=== PATIENT | male | born 1940 | race Caucasian/White ===

== ENCOUNTER → 2020-04-13 | Outpatient (CLI) | payer MEDICARE ==
--- NOTE | 2020-04-13 14:15 | XR ---
EXAMINATION TYPE: XR cervical spine comp DATE OF EXAM: 04/13/2020 TECHNIQUE: Frontal, lateral, oblique, and open mouth view of the cervical spine are obtained. HISTORY: M542 CERVICALGIA chronic neck pain for 8 months. COMPARISON: None FINDINGS: Osseous structures are demineralized which is dorsal radiographic sensitivity. The cervica l spine is visualized in its entirety from C1 thru the top of T1 level, there is grade 1 anterolisthe sis C3 on C4 and to a greater degree C4-C5. There is grade 1 retrolisthesis C5 on C6. The pre-vertebr al soft tissue appears within normal limits. The C1-C2 articulation is within normal limits on the o pen mouth view. Vertebral body heights are maintained. Moderate to severe disc space narrowing C5-C6 and C6-C7 levels. The oblique images are within normal limits. Overlying soft tissue is unremarkable. IMPRESSION: As above.
== END | disposition home or self-care (01) ==
LOC: RADXRYALE 13:44
PROVIDERS: ATTEND Physician Assistant Medical
DX: M99.71 Connective tissue and disc stenosis of intervertebral foramina of cervical region (principal); M43.12 Spondylolisthesis, cervical region
CPT/HCPCS: 72050

== ENCOUNTER → 2021-05-02 | Outpatient (CLI) | payer MEDICARE ==
--- NOTE | 2021-05-04 12:44 | ECHOF ---
Referral Reason:R01.1 heart murmur, I10 hypertension MEASUREMENTS -------- HEIGHT: 167.6 cm WEIGHT: 52.6 kg BP: RVIDd: 3.8 cm (< 3.3) IVSd: 1.3 cm (0.6 - 1.1) LVIDd: 3.5 cm (3.9 - 5.3) LVPWd: 1.2 cm (0.6 - 1.1) IVSs: 1.6 cm LVIDs: 1.8 cm LVPWs: 1.5 cm LAESV Index (A-L): 25.56 ml/m Ao Diam: 3.5 cm (2.0 - 3.7) AV Cusp: 1.2 cm (1.5 - 2.6) LA Diam: 3.1 cm (2.7 - 3.8) MV EXCURSION: 9.024 mm (> 18.000) MV EF SLOPE: 79 mm/s (70 - 150) EPSS: 0.8 cm MV E Zi: 0.90 m/s MV DecT: 263 ms MV A Zi: 1.37 m/s MV E/A Ratio: 0.66 AV maxP.14 mmHg AV meanP.94 mmHg RAP: 5.00 mmHg RVSP: 38.75 mmHg FINDINGS -------- Sinus rhythm. This was a technically adequate study. The left ventricular size is normal. There is mild concentric left ventricular hypertrophy. Overa ll left ventricular systolic function is normal with, an EF between 55 - 60 %. The diastolic fillin g pattern is normal for the age of the patient 16.85. The right ventricle is mild to moderately enlarged. Normal LA size by volume 22+/-6 ml/m2. The right atrial size is normal. Interatrial and interventricular septum intact. There is no evidence of aortic regurgitation. Moderate to severe aortic stenosis with peak/mean pre ssure gradient of 61.14mmHg / 35.94mmHg, the aortic valve area by continuity equation is 0.9cm. Pe ak/mean gradient across the Aortic Valve is 61.14mmHg / 35.94mmHg. Mild mitral regurgitation is present. Mild tricuspid regurgitation present. There is borderline pulmonary hypertension. The right ventr icular systolic pressure, as measured by Doppler, is 38.75mmHg. There is no pulmonic regurgitation present. The aortic root size is normal. Normal inferior vena cava with normal inspiratory collapse consistent with estimated right atrial pre ssure of 5 mmHg. There is no pericardial effusion. CONCLUSIONS -------- 1. The left ventricular size is normal. 2. There is mild concentric left ventricular hypertrophy. 3. Overall left ventricular systolic function is normal with, an EF between 55 - 60 %. 4. The right ventricle is mild to moderately enlarged. 5. Moderate to severe aortic stenosis with peak/mean pressure gradient of 61.14mmHg / 35.94mmHg, the aortic valve area by continuity equation is 0.9cm. 6. Peak/mean gradient across the Aortic Valve is 61.14mmHg / 35.94mmHg. 7. Mild mitral regurgitation is present. 8. Mild tricuspid regurgitation present. 9. There is borderline pulmonary hypertension. 10. The right ventricular systolic pressure, as measured by Doppler, is 38.75mmHg. HEAD BOYS GOLF COACH: Lisbeth Jenkins RDCS
== END | disposition home or self-care (01) ==
LOC: RADECHMAIN 14:33
PROVIDERS: ATTEND Family Medicine
DX: I35.0 Nonrheumatic aortic (valve) stenosis (principal)
CPT/HCPCS: 93306

== ENCOUNTER 2023-01-08 08:40 | Day surgery (SDC) | payer MEDICARE ==
[2023-01-04 11:00] VITALS: BMI 25.8
[~2023-01-08 08:40] MED LIST: ALPRAZolam 0.25 MG TAB PO PRN; ALPRAZolam 0.5 MG TAB PO PRN; ASPIRIN 325 MG TAB PO PRN; ATORVASTATIN 80 MG TAB PO STA; HEPARIN SODIUM,PORCINE 10,000 UNIT in SODIUM CHLORIDE 0.9% 1,000 ML IRRIGATION PRN; HEPARIN SODIUM,PORCINE 2,500 UNIT in SODIUM CHLORIDE 0.9% 250 ML IRRIGATION PRN; NITROGLYCERIN SL TABS 0.4 MG TAB SUBLINGUAL PRN; SODIUM CHLORIDE 0.9% 1,000 ML in EMPTY BAG 1 BAG IV ONE; ZOLPIDEM 5 MG TAB PO PRN
[2023-01-08] MEDS ORDERED: VERAPAMIL 2.5 MG/ML 2 ML AMP ONE (11:19)
[2023-01-08] MEDS ORDERED: LIDOCAINE 1% INJ 10MG/ML (20 ML MDV) ONE (11:19)
[2023-01-08] MEDS ORDERED: MIDAZOLAM 2 MG/2 ML VIAL IV ONE (12:14)
[2023-01-08] MEDS ORDERED: LIDOCAINE 1% INJ 10MG/ML (20 ML MDV) SQ ONE (12:14)
[2023-01-08] MEDS ORDERED: IOPAMIDOL-370 100ML BTL INJ ONE (12:29)
[2023-01-08] MEDS ORDERED: IOPAMIDOL-250 100ML BTL INTRAARTER ONE (12:31)
[2023-01-08] MEDS ORDERED: RX INFO: IV CONTRAST WAS GIVEN 1 EACH MISC MISCELLANE PRN (12:38)
--- NOTE | 2023-01-08 12:42 | P.PCN ---
Date of Procedure: 01/08/23 Operative Findings: CARDIAC CATHETERIZATION PERFORMING PHYSICIAN: Michael Kelly MD, RPVI PROCEDURE PERFORMED: 1. Selective right and left coronary angiogram 2. Left heart catheterization 3. Ultrasound-guided access of the right femoral artery INDICATION: Unstable angina and valvular heart disease COMPLICATION: None APPROACH: Right common femoral artery LEVEL OF SEDATION: Moderate with sedation in length of 10 minutes PROCEDURE DESCRIPTION: After obtaining an informed consent, the patient was brought to cardiac laborer cutting tool. Local anesthesia was performed using lidocaine subcutaneously. The right common femoral artery was cannulated using Seldinger technique, the guidewire passed easily, following that we advanced a 6 Jordanian sheath dilator assembly, the wire and dilator were removed and sheath was flushed. Selective right and left coronary angiogram using a 6-Jordanian JR4 and JL catheters. Following that we did left heart catheterization using 6-Jordanian pigtail catheter. The procedure was completed there was no complication. SELECTIVE CORONARY ANGIOGRAM: The right coronary artery: Large caliber vessel and dominant vessel. The mid RCA has a lesion in the midportion appears to be in the range of 30-40% Left main: Has mild disease only. Bifurcates into a 6 and LAD The left circumflex: Large caliber vessel and on dominant vessel. The LCx appeared to have mild disease only. Gives rises into an I am which bifurcates into 2 subbranches and appeared to have mild disease only. The left anterior descending artery: The ostial LAD has mild disease only. The mid and distal LAD appeared to be angiographically normal. The LAD gives rise into a diagonal branch which seems to have mild disease only. HEMODYNAMICS: The LVEDP was 12 mmHg. There was a mean gradient across the valve of 51 mmHg CONCLUSION: 1. Mild nonobstructive coronary artery disease 2. Severe aortic stenosis with a mean gradient across the valve of 51 mmHg
--- NOTE | 2023-01-08 12:44 | P.PCN ---
Date of Procedure: 01/08/23 Operative Findings: AN ABDOMINAL AORTOGRAM AND BILATERAL LOWER EXTREMITIES RUNOFF PERFORMING PHYSICIAN: Michael Kelly MD PROCEDURE PERFORMED: 1. An abdominal aortogram 2. Bilateral lower extremities runoff INDICATION: Bilateral lower extremity is intermittent claudication in this 82-year-old gentleman who underwent a duplex study revealed aortoiliac disease and fem-pop disease COMPLICATION: None LEVEL OF SEDATION: Moderate was sedation length of 11 minutes APPROACH: Right common femoral artery PROCEDURE DESCRIPTION: After obtaining informed consent and explaining the procedure benefits, risks, and complications, the patient was brought to the cardiac hospital laboratory technician. The right groin was prepped and draped in sterile fashion. The right common femoral artery was cannulated using micropuncture technique, under ultrasound guidance. A micropuncture wire was advanced, and the micropuncture sheath was advanced over the wire, then the micropuncture sheath was exchanged over an 0.35 wire into a 5-Amharic sheath dilator assembly then the wire and dilator were removed and sheath was flushed. We did an abdominal aortogram and bilateral lower extremities runoff using 5- Amharic pigtail catheter using a power injection. The catheter was initially placed at the level of the renal arteries, and it was pulled into above the bifurcation of the aorta into right and left common iliac arteries. The procedure was completed and there was no complications. SELECTIVE PERIPHERAL ANGIOGRAM: The abdominal aorta: Calcified was mild to moderate disease The common iliac arteries: Calcified was mild to moderate disease only The external iliac arteries: Calcified was mild disease only The internal iliac arteries: Are patent The common femoral arteries: Have mild disease only bilaterally Superficial femoral arteries: Both are occluded in the midportion Popliteal arteries: Appears to have mild disease only Below the knees: 3 vessels runoff below the knee bilaterally CONCLUSION: Mild aortoiliac disease Critical right SFA and occluded left SFA POSTPROCEDURE MANAGEMENT: Medical treatment and follow-up with the patient and consider PIPED BUTTONHOLE MACHINE OPERATOR
[2023-01-08] MEDS ORDERED: SODIUM CHLORIDE 0.9% 1,000 ML IV SCH (12:45)
--- NOTE | 2023-01-08 12:50 | IR ---
EXAMINATION TYPE: IR angio abdominal w runoff DATE OF EXAM: 01/08/2023 COMPARISON: NONE HISTORY: Fluoroscopy time. Fluoroscopy was provided to the referring clinician.
[2023-01-08 19:36] VITALS: BP 154/70; PULSE 95; RESP 17; TEMP 98.1
== END 2023-01-08 20:35 | disposition home or self-care (01) ==
LOC: CATHCVL 08:40 → 6NMEDSUR 12:34 → CATHCVL 20:35
PROVIDERS: ATTEND Internal Medicine Interventional Cardiology
DX: I25.110 Atherosclerotic heart disease of native coronary artery with unstable angina pectoris (principal); I35.0 Nonrheumatic aortic (valve) stenosis; I70.213 Atherosclerosis of native arteries of extremities with intermittent claudication, bilateral legs; I70.0 Atherosclerosis of aorta; I11.9 Hypertensive heart disease without heart failure; E78.5 Hyperlipidemia, unspecified; E11.51 Type 2 diabetes mellitus with diabetic peripheral angiopathy without gangrene; Z79.899 Other long term (current) drug therapy
CPT/HCPCS: 99152; 93458; 75625; 75716; 76937; C1769 ×2; C1894 ×2; J2250; J2001; Q9966; Q9967; 36200

== ENCOUNTER 2023-02-07 06:53 | Outpatient (CLI) | payer MEDICARE ==
[2023-02-07 07:54] LABS: Basophils % (A) 1 %; Eosinophils # (A) 0.3 k/uL (0-0.7); Eosinophils % (A) 5 %; HCT 40.1 % (39.0-53.0); HGB 13.5 gm/dL (13.0-17.5); Lymphocytes # (A) 0.8 k/uL (1.0-4.8); Lymphocytes % (A) 13 %; MCHC 33.6 g/dL (31.0-37.0); MCV 95.4 fL (80.0-100.0); Mean Platelet Volume 8.7; Monocytes # (A) 0.5 k/uL (0-1.0); Monocytes % (A) 8 %; Neutrophils # (A) 4.6 k/uL (1.3-7.7); Neutrophils % (A) 72 %; Platelet Count 245 k/uL (150-450); RBC 4.21 m/uL (4.30-5.90); RDW 12.3 % (11.5-15.5); WBC 6.4 k/uL (3.8-10.6)
[2023-02-07 08:13] LABS: Partial Thromboplastin Time 24.4 sec (22.0-30.0); Prothrombin Time 10.5 sec (9.0-12.0)
[2023-02-07 08:58] LABS: NT-Pro-B-Type Natriuretic Pept 149 pg/mL
[2023-02-07 09:09] LABS: AST 32 U/L (17-59); African American GFR (CKD) 62 (>60 ml/min/1.73 sqM); Albumin 4.4 g/dL (3.5-5.0); Albumin/Globulin Ratio 1.4; Alkaline Phosphatase 53 U/L (38-126); Blood Urea Nitrogen 28 mg/dL (9-20); Calcium 9.6 mg/dL (8.4-10.2); Carbon Dioxide 23 mmol/L (22-30); Chloride 106 mmol/L (98-107); Globulin 3.1 g/dL; Glucose 108 mg/dL (74-99); Non-African American GFR(CKD) 54 (>60 ml/min/1.73 sqM); Total Bilirubin 0.7 mg/dL (0.2-1.3); Total Protein 7.5 g/dL (6.3-8.2)
[2023-02-07 09:31] LABS: Appearance,Urine Clear (Clear); Bilirubin,Urine Negative (Negative); Blood,Urine Negative (Negative); Color,Urine Light Yellow; Glucose,Urine (UA) Negative (Negative); Ketones,Urine Negative (Negative); Leukocyte Esterase,Urine Negative (Negative); Nitrite,Urine Negative (Negative); Protein,Urine Negative (Negative); Specific Gravity,Urine 1.014 (1.001-1.035); Urobilinogen,Urine <2.0 mg/dL (<2.0)
[2023-02-07 09:47] LABS: ALT 20 U/L (4-49); Anion Gap 9 mmol/L; Sodium 138 mmol/L (137-145)
[2023-02-07 09:58] LABS: Potassium 5.1 mmol/L (3.5-5.1)
[2023-02-07 10:13] LABS: T4, Free (Free Thyroxine) 0.97 ng/dL (0.78-2.19)
[2023-02-07 11:48] LABS: Hepatitis A Antibody IgM Nonreactive; Hepatitis B Core IgM Nonreactive; Hepatitis B Surface Antigen Nonreactive; Hepatitis C IgG Antibody Nonreactive
--- NOTE | 2023-02-07 11:50 | CT ---
EXAMINATION TYPE: CT TAVR Planning DATE OF EXAM: 02/07/2023 HISTORY: TAVR. CT DLP: 1614.4 mGycm Automated Exposure Control for Dose Reduction was Utilized. CONTRAST: CT scan of the chest, abdomen and pelvis is performed with IV Contrast, patient injected with 125ml m L of Isovue 370. COMPARISON: None TECHNIQUE: Helical imaging obtained through the chest, abdomen and pelvis during arterial phase earnestine ivan administration of radiographic contrast intravenously. FINDINGS: See report from [facility] regarding preprocedural planning CHEST: Lower Neck and Thyroid: No significant findings Lungs: Calcified granulomas are noted. Within the right upper lobe there is a noncalcified 6.5 mm pul monary nodule image 38 sequence 10. Three-month follow-up is recommended. Central Airway: No significant findings Pleura: No significant findings Pulmonary Arteries: No significant findings Heart and Pericardium: No significant findings Lymph Nodes: No significant findings Mediastinum & Esophagus: No significant findings ABDOMEN/PELVIS: Please note arterial phase of the imaging limits detailed evaluation of the solid abdominal organs. Liver: No significant findings Spleen: No significant findings Kidneys: Renal cystic changes noted bilaterally. Adrenal Glands: No significant findings Pancreas: No significant findings Gallbladder: No significant findings Bowel and Mesentery: No significant findings Lymph Nodes: No significant findings Urinary Bladder: No significant findings Pelvic Organs: No significant findings Other: Severe degenerative changes throughout the thoracic and lumbar spine. Other Lines/Tubes/Devices/Hardware: None IMPRESSION: 1. Noncalcified right upper lobe pulmonary nodule. Three-month follow-up is recommended. 2. Evidence of remote granulomatous disease.
[2023-02-07 15:53] LABS: LDL Cholesterol,Calculated 105.7 mg/dL (0.0-131.0)
== END 2023-02-07 14:00 | disposition home or self-care (01) ==
LOC: LABWHC1 06:53
PROVIDERS: ATTEND Thoracic Surgery (Cardiothoracic Vascular Surgery)
DX: Z01.818 Encounter for other preprocedural examination (principal); I35.1 Nonrheumatic aortic (valve) insufficiency; I35.0 Nonrheumatic aortic (valve) stenosis; E87.8 Other disorders of electrolyte and fluid balance, not elsewhere classified; Z51.81 Encounter for therapeutic drug level monitoring; Z79.899 Other long term (current) drug therapy; N28.9 Disorder of kidney and ureter, unspecified; E78.5 Hyperlipidemia, unspecified; E11.9 Type 2 diabetes mellitus without complications; E07.9 Disorder of thyroid, unspecified; Z79.01 Long term (current) use of anticoagulants; R58 Hemorrhage, not elsewhere classified; R35.0 Frequency of micturition
CPT/HCPCS: 94150; 84439; 83880; 80061; 80053; 80074; 84443; 83735; 85025; 85610; 85730; 81003; 87086; 83036; 71275; 74174; 36415; Q9967

== ENCOUNTER 2023-02-13 05:49 | Day surgery (SDC) | payer MEDICARE ==
[2023-02-13] MEDS ORDERED: ALPRAZolam 0.25 MG TAB PO PRN (06:01)
[2023-02-13] MEDS ORDERED: SODIUM CHLORIDE 0.9% 1,000 ML in EMPTY BAG 1 BAG IV ONE (06:01)
[2023-02-13] MEDS ORDERED: SODIUM CHLORIDE 0.9% 1,000 ML IV ONE (06:09)
[2023-02-13 06:20] LABS: Glucose,Whole Blood 101 mg/dL (70-110)
[2023-02-13] MEDS ORDERED: ASPIRIN 325 MG TAB PO PRN (07:00)
[2023-02-13] MEDS ORDERED: LIDOCAINE 1% INJ 10MG/ML (20 ML MDV) ONE (07:14)
[2023-02-13] MEDS ORDERED: niCARdipine 25 MG/10 ML VIAL ONE (07:22)
[2023-02-13] MEDS: MIDAZOLAM 2 MG/2 ML VIAL IVP ONE ×2 (07:55→08:26)
[2023-02-13] MEDS ORDERED: LIDOCAINE 1% INJ 10MG/ML (20 ML MDV) SQ ONE (08:00)
[2023-02-13] MEDS ORDERED: HEPARIN SODIUM 1,000 UN/ML (10ML VL) IV ONE (08:06)
[2023-02-13] MEDS: HEPARIN SODIUM 1,000 UN/ML (10ML VL) ONE ×2 (08:40→09:06)
[2023-02-13] MEDS ORDERED: NITROGLYCERIN 1000MCG/10ML SYRINGE INTRAARTER ONE (08:57)
[2023-02-13] MEDS ORDERED: niCARdipine Syringe (1,000 mcg/10 mL) INTRAARTER ONE (08:57)
[2023-02-13] MEDS ORDERED: CLOPIDOGREL 75 MG TAB ONE (09:10)
[2023-02-13] MEDS ORDERED: CLOPIDOGREL 75 MG TAB PO ONE (09:12)
[2023-02-13] MEDS ORDERED: NALOXONE 0.4 MG/ML 1 ML VIAL IVP PRN (09:22)
[2023-02-13] MEDS ORDERED: SODIUM CHLORIDE 0.9% 1,000 ML in EMPTY BAG 1 BAG IV SCH (09:30)
[2023-02-13] MEDS ORDERED: IOPAMIDOL-370 100ML BTL INJ ONE (09:33)
--- NOTE | 2023-02-13 09:55 | IR ---
EXAMINATION TYPE: IR special education paraeducator femoral popliteal DATE OF EXAM: 02/13/2023 COMPARISON: NONE HISTORY: Fluoroscopy time. Fluoroscopy was provided to the referring clinician.
--- NOTE | 2023-02-13 10:05 | P.PCN ---
Date of Procedure: 02/13/23 Operative Findings: PERCUTANEOUS PERIPHERAL INTERVENTION Performing physician Michael Kelly M.D. Procedure performed 1. Successful angioplasty of the left SFA with good angiographic results and reduction of stenosis from 99% to 0% 2. Adjunctive use of orbital atherectomy and shockwave balloon and intravascular ultrasound 3. Intravascular ultrasound of the right SFA and right popliteal as well as bilateral iliac arteries 4. Ultrasound-guided access of the left common femoral artery 5. Right lower extremity angiogram Indication Bilateral lower extremity is intermittent claudication who underwent recently an angiogram and that revealed critical right SFA is occluded left SFA. He was brought today to undergo a BASKET BRAIDER of the right SFA Approach Left common femoral artery Complications None Level of sedation Moderate with a sedation time of 78 minutes Procedure description After obtaining an informed consent the patient was brought to the cardiac physical laboratory assistant. The left common femoral artery was cannulated using micropuncture techniqu e under ultrasound guidance and the micropuncture wire passed easily then I placed a 6-Albanian 70 cm sheath in the left common femoral artery. At that point anticoagulation was initiated using heparin would continue his ACT monitoring. The right SFA was selected using 035 stiff Glidewire with a backup support of 5- Albanian rim catheter then the long sheath was advanced over the wire and the catheter to the proximal right common femoral artery. The right lower extremity angiogram was performed and showed 2 vessels run off below the with anterior TPL and peroneal and critical disease involving the mid right SFA. At that point I crossed the lesion in the right SFA using 014 wire. I did after that intravascular ultrasound which revealed extremely calcified lesion. I did exchange my 014 wire into a 14 atherectomy wire preparing to do orbital atherectomy which was performed under local and medial and high-speed. Subsequently I did balloon angioplasty using shockwave balloon which was 6 mm. Intravascular ultrasound revealed a diameter about 6 mm with extremely calcified SFA. After that I did balloon arterial vascular was performed in angiogram was performed and showed a good angiographic results and for that reason I decided to move forward with drug-coated balloon which was 6.0 x 200 mm balloon which was inflated under 5 heraclio for 30 minutes. Final angiogram was performed and sh owed good angiographic results with good flow below the knee as well. After that I did intravascular ultrasound of bilateral iliacs and that showed a diameter of the iliac 6 mm with the absence of any high-grade stenosis. The procedure was completed was no complication. After that I did exchange my long sheath into short sheath using 035 stiff Glidewire before I did selective left common femoral artery angiogram. The procedure was completed was no complication Postprocedure management 1. Dual antiplatelet therapy 2. Aggressive cholesterol control 3. Risk factors modification 4. Follow-up with the patient
[2023-02-13] MEDS: lisinopriL 5 MG TAB PO SCH (20:57)
[2023-02-13] MEDS ORDERED: FLUTICASONE 50MCG/SPRAY NASAL 16GM EA NOSTRIL SCH (21:00)
[2023-02-14 06:55] LABS: African American GFR (CKD) 66 (>60 ml/min/1.73 sqM); Non-African American GFR(CKD) 57 (>60 ml/min/1.73 sqM)
[2023-02-14 07:42] VITALS: BP 108/64; PULSE 75; RESP 18; TEMP 97.8
[2023-02-14] MEDS: lisinopriL 5 MG TAB PO SCH (08:03)
[2023-02-14] MEDS ORDERED: NON FORMULARY DRUG (Ubidecarenone [Co Q-10] 100 MG Capsule) PO SCH (09:00)
[2023-02-14] MEDS ORDERED: ASPIRIN 81 MG PO SCH (09:00)
[2023-02-14] MEDS ORDERED: CYANOCOBALAMIN 500 MCG TAB PO SCH (09:00)
[2023-02-14] MEDS ORDERED: CLOPIDOGREL 75 MG TAB PO SCH (09:00)
[2023-02-14] MEDS ORDERED: NON FORMULARY DRUG (Vitamin K2 [Vitamin K2] 100 MCG Capsule) PO SCH (09:00)
[2023-02-14] MEDS ORDERED: PRAVASTATIN SODIUM 80 MG TAB PO SCH (09:00)
[2023-02-14] MEDS ORDERED: MULTIVITAMINS, THERA 1 EACH TAB PO SCH (09:00)
[2023-02-14] MEDS ORDERED: CHOLECALCIFEROL 25 MCG (1000 IU) TABLET PO SCH (09:00)
--- NOTE | 2023-02-14 11:57 | P.DS ---
Providers Attending physician: Michael Kelly Primary care physician: [facility] Course: The patient is a pleasant 82-year-old gentleman who underwent yesterday successful balloon angioplasty of the right SFA with a good angiographic results from left groin approach. The patient was seen this morning. He is asymptomatic. The right foot has a great pulse in the dorsalis pedis artery. The patient is going to be discharged home on dual antiplatelet therapy and statin and I will follow-up with the patient next week in the office Plan - Discharge Summary Discharge Rx Participant: No New Discharge Prescriptions: New Atorvastatin Calcium [Lipitor] 40 mg PO DAILY #90 tablet Clopidogrel [Plavix] 75 mg PO DAILY #90 tablet Continue Cyanocobalamin (Vitamin B-12) [Vitamin B-12] 1,000 mcg PO DAILY Cholecalciferol [Vitamin D3 (25 Mcg = 1000 Iu)] 25 mcg PO DAILY Ubidecarenone [Co Q-10] 100 mg PO DAILY Pravastatin Sodium 80 mg PO DAILY lisinopriL [Zestril] 5 mg PO BID Vitamin K2 90 mcg PO DAILY Multivitamin/Iron/Folic Acid [Centrum Adults Tablet] 1 each PO DAILY Fluticasone Nasal [place] [Flonase Nasal [place]] 1 spray EA NOSTRIL BID Aspirin 81 mg PO DAILY Discharge Medication List Cholecalciferol [Vitamin D3 (25 Mcg = 1000 Iu)] 25 mcg PO DAILY 12/14/21 [History] Cyanocobalamin (Vitamin B-12) [Vitamin B-12] 1,000 mcg PO DAILY 12/14/21 [History] Ubidecarenone [Co Q-10] 100 mg PO DAILY 12/14/21 [History] Vitamin K2 90 mcg PO DAILY 12/14/21 [History] lisinopriL [Zestril] 5 mg PO BID 12/14/21 [History] Fluticasone Nasal [place] [Flonase Nasal [place]] 1 spray EA NOSTRIL BID 01/04/23 [History] Multivitamin/Iron/Folic Acid [Centrum Adults Tablet] 1 each PO DAILY 01/04/23 [History] Pravastatin Sodium 80 mg PO DAILY 01/04/23 [History] Aspirin 81 mg PO DAILY 01/08/23 [History] Atorvastatin Calcium [Lipitor] 40 mg PO DAILY #90 tablet 02/14/23 [Rx] Clopidogrel [Plavix] 75 mg PO DAILY #90 tablet 02/14/23 [Rx] Follow up Appointment(s)/Referral(s): Michael Kelly MD [STAFF PHYSICIAN] - 02/27/23 2:15 pm Patient Instructions/Handouts: Angiography (DC) Discharge Disposition: HOME SELF-CARE
== END 2023-02-14 09:10 | disposition home or self-care (01) ==
LOC: CATHCVL 05:49 → 6NMEDSUR 12:51 → CATHCVL 02-14 09:10
PROVIDERS: ATTEND Internal Medicine Interventional Cardiology
DX: I73.9 Peripheral vascular disease, unspecified (principal); I10 Essential (primary) hypertension; E11.9 Type 2 diabetes mellitus without complications; E78.5 Hyperlipidemia, unspecified; Z79.899 Other long term (current) drug therapy
CPT/HCPCS: 37252; 37253; 82565; C1894 ×2; C1769 ×6; C1714; C1753; C2623; C9766; C1725; J2250; J2001; J1644; Q9967

== ENCOUNTER 2023-03-20 08:00 | Inpatient (IN) | payer MEDICARE ==
[2023-04-10] MEDS ORDERED: CLOPIDOGREL 75 MG TAB PO ONE (08:00)
[2023-04-10] MEDS ORDERED: ATORVASTATIN 10 MG TAB PO ONE (08:00)
[2023-04-10] MEDS ORDERED: INSULIN REGULAR 100 UNIT in SODIUM CHLORIDE 0.9% 100 ML IV PRN (08:00)
[2023-04-10] MEDS ORDERED: ELECTROLYTE-A SOLUTION 1,000 ML with POTASSIUM CHLORIDE 100 MEQ, MAGNESIUM SULFATE 16 M... IV PRN ×5 (08:00)
[2023-04-10] MEDS ORDERED: METOPROLOL TARTRATE 25 MG TAB PO ONE (08:00)
[2023-04-10] MEDS ORDERED: PROTAMINE SULFATE 250 MG in EMPTY BAG 1 BAG IV PRN (08:00)
[2023-04-10] MEDS ORDERED: NITROGLYCERIN-D5W PMX 25 MG/250 ML BTL IV PRN (08:00)
[2023-04-10] MEDS ORDERED: ASPIRIN 325 MG TAB PO ONE (08:00)
[2023-04-10] MEDS ORDERED: TRANEXAMIC ACID 2,000 MG in SODIUM CHLORIDE 0.9% 80 ML IV PRN (08:00)
[2023-04-10] MEDS ORDERED: CLEVIDIPINE BUTYRATE 25 MG in EMPTY BAG 1 BAG IV PRN (08:00)
[2023-04-10] MEDS ORDERED: LACTATED RINGERS 1,000 ML IV SCH ×2 (08:00→12:46)
[2023-04-10] MEDS ORDERED: METOPROLOL TARTRATE 12.5 MG TAB PO ONE (08:00)
[2023-04-10] MEDS ORDERED: SODIUM CHLORIDE 0.9% 500 ML 500 ML INTRAARTER PRN (08:00)
[2023-04-10] MEDS ORDERED: DEXMEDETOMIDINE/0.9% NACL(PMX) 400 MCG in EMPTY BAG 1 BAG IV SCH (08:15)
[2023-04-10] MEDS ORDERED: HEPARIN SODIUM,PORCINE 5,000 UNIT/ML 1 ML VIAL ONE (10:06)
[2023-04-10] MEDS ORDERED: MIDAZOLAM 2 MG/2 ML VIAL ONE (10:06)
[2023-04-10] MEDS ORDERED: PROTAMINE SULFATE 10 MG/ML 5 ML VIAL ONE (10:06)
[2023-04-10] MEDS ORDERED: DEXMEDETOMIDINE/0.9% NACL(PMX) 400 MCG/100 ML IV ONE (10:06)
[2023-04-10] MEDS ORDERED: HEPARIN SODIUM,PORCINE 10,000 UNIT/ML 1 ML VIAL ONE (10:06)
[2023-04-10] MEDS ORDERED: fentaNYL (PF) 50 MCG/ML 2 ML AMP ONE (10:06)
[2023-04-10] MEDS ORDERED: PHENYLEPHRINE-0.9% NACL SYG 1,000 MCG/10 ML SYRINGE ONE (10:06)
[2023-04-10] MEDS ORDERED: LIDOCAINE 1% INJ 10MG/ML (20 ML MDV) ONE ×2 (10:28→10:29)
[2023-04-10] MEDS ORDERED: LIDOCAINE 1% INJ 10MG/ML (20 ML MDV) SQ ONE (10:51)
[2023-04-10] MEDS ORDERED: ONDANSETRON 4 MG/2 ML VIAL IVP PRN (12:46)
[2023-04-10] MEDS ORDERED: IPRATROPIUM-ALBUTEROL 3 ML NEB INHALATION PRN (12:46)
[2023-04-10] MEDS ORDERED: ACETAMINOPHEN TAB 325 MG TAB PO PRN (12:46)
[2023-04-10] MEDS ORDERED: Magnesium Replacement Protocol 1 EACH MISC MISCELLANE PRN (12:46)
[2023-04-10] MEDS ORDERED: Potassium Replacement Protocol 1 EACH MISC MISCELLANE PRN (12:46)
[2023-04-10] MEDS ORDERED: IV FLUID CONTINUATION 1,000 ML IV ONE (13:41)
[2023-04-10] MEDS ORDERED: IOPAMIDOL-370 100ML BTL INJ ONE (13:42)
[2023-04-10] MEDS ORDERED: IOPAMIDOL-300 100ML BTL INJ ONE (13:42)
[2023-04-10 13:49] LABS: Glucose,Whole Blood 109 mg/dL (70-110)
[2023-04-10 14:11] LABS: Basophils % (A) 0 %; Eosinophils # (A) 0.3 k/uL (0-0.7); Eosinophils % (A) 5 %; HCT 31.7 % (39.0-53.0); HGB 10.4 gm/dL (13.0-17.5); Lymphocytes # (A) 0.6 k/uL (1.0-4.8); Lymphocytes % (A) 11 %; MCH 31.6 pg (25.0-35.0); MCHC 32.8 g/dL (31.0-37.0); MCV 96.4 fL (80.0-100.0); Mean Platelet Volume 9.1; Monocytes # (A) 0.3 k/uL (0-1.0); Monocytes % (A) 5 %; Neutrophils # (A) 4.5 k/uL (1.3-7.7); Neutrophils % (A) 78 %; Platelet Count 252 k/uL (150-450); RBC 3.29 m/uL (4.30-5.90); RDW 12.2 % (11.5-15.5); WBC 5.7 k/uL (3.8-10.6)
[2023-04-10 14:28] LABS: Ionized Calcium 4.9 mg/dL (4.5-5.3)
[2023-04-10] MEDS ORDERED: hydrALAZINE HCL 20 MG/ML 1 ML VIAL IVP PRN (14:30)
--- NOTE | 2023-04-10 14:34 | OP ---
OPERATIVE REPORT DATE OF SERVICE : 04/10/2023 SURGEONS: 1. Dr. Kelsey Be. 2. Dr. Bijan Maier. PREOPERATIVE DIAGNOSES: 1. Severe symptomatic aortic valve stenosis. 2. Esophageal stricture. POSTOPERATIVE DIAGNOSES: 1. Severe symptomatic aortic valve stenosis. 2. Esophageal stricture. PROCEDURES PERFORMED: 1. Insertion of right ventricular temporary pacing wire. 2. Predilatation of the aortic valve using a 22 mm True balloon. 3. Transcatheter aortic valve replacement using a 29 mm Evolut FX CoreValve. from [employer]. DESCRIPTION OF PROCEDURE: The technical details will be dictated by Dr. Maier. The procedure was performed with local anesthesia and IV sedation as the patient has an esophageal stricture precluding performing a MAULIK with an adult scope. I fully participated in the proper dilatation initially of the aortic valve with a 22 mm True balloon followed by transcatheter aortic valve replacement using a 29 mm Evolut FX CoreValve from [employer]. 2D echo showed low gradient, and no evidence of paravalvular leak. Aortogram showed no significant aortic valve regurgitation, and hemodynamic measurement showed no residual gradient across the valve. No changes to the EKG. MMODL / IJN: [id number] /
[2023-04-10 14:38] LABS: ALT 25 U/L (4-49); AST 40 U/L (17-59); African American GFR (CKD) 61 (>60 ml/min/1.73 sqM); Albumin 3.2 g/dL (3.5-5.0); Alkaline Phosphatase 47 U/L (38-126); Anion Gap 4 mmol/L; Blood Urea Nitrogen 21 mg/dL (9-20); Calcium 8.8 mg/dL (8.4-10.2); Carbon Dioxide 22 mmol/L (22-30); Chloride 109 mmol/L (98-107); Glucose 114 mg/dL (74-99); Magnesium 2.1 mg/dL (1.6-2.3); Non-African American GFR(CKD) 53 (>60 ml/min/1.73 sqM); Potassium 5.3 mmol/L (3.5-5.1); Sodium 135 mmol/L (137-145); Total Bilirubin 0.5 mg/dL (0.2-1.3); Total Protein 6.1 g/dL (6.3-8.2)
[2023-04-10 14:42] LABS: INR 1.1 (<1.2); Prothrombin Time 11.7 sec (9.0-12.0)
[2023-04-10 15:12] LABS: Partial Thromboplastin Time >200.0 sec (22.0-30.0)
--- NOTE | 2023-04-10 15:31 | XR ---
EXAMINATION TYPE: XR chest 1V portable DATE OF EXAM: 04/10/2023 2:17 PM CLINICAL INDICATION:Male, 82 years old with history of Post Operative Cardiac Surgery; [facility] COMPARISON: None TECHNIQUE: XR chest 1V portable Frontal view of the chest. FINDINGS: Lungs/Pleura: Low lung volumes are present. There is no evidence of pleural effusion, focal consolida tion, or pneumothorax. Pulmonary vascularity: Unremarkable. Heart/mediastinum: Cardiomediastinal silhouette is unremarkable. Post aortic valve repair changes. Musculoskeletal: No acute osseous pathology. Other findings: None IMPRESSION: Aortic valve repair change. Low lung volumes. No significant pulmonary vascular congestion
[2023-04-10] MEDS ORDERED: ATROPINE SULFATE 0.1 MG/ML 10ML SYRINGE ONE (16:29)
--- NOTE | 2023-04-10 16:51 | P.OP ---
Description of Procedure: Transcatheter Aoritc Valve Replacement Operative report PROCEDURE PERFORMED: 1. Percutaneous Aortic Valve Implantation using a 29 mm Evolut-FX. 2. Transthoracic echocardiography 3. Ultrasound guided access and repair of left femoral artery access site by Perclose closure device. 4. Placement of temporary pacemaker wire. 5. Aortic root angiography 6. Pre TAVR balloon aortic valvuloplasty with a 22mm True balloon 7. Repair of left femoral artery using a 6.0 x 120mm Supera stent, post dilated with a 6.0 balloon 8. IVUS left femoral artery INDICATIONS: 1. 82 year-old with a history of severe symptomatic aortic valve stenosis. PERFORMING PHYSICIANS: 1. Bijan Maier, Interventional Cardiology 2. Kelsey Be MD, Cardiothoracic Surgeon. SEDATION: Moderate conscious sedation was performed by anesthesia, see separate note APPROACH: Left femoral artery via percutaneous approach PROCEDURE DESCRIPTION: The patient was discussed at valve clinic with multidisciplinary approach with cardiothoracic surgeon as well as cigarette tester and thought better treated with TAVR. Risks, benefits, and alternatives of the procedure had been explained to the patient who understood the risks and agreed to proceed. Patient was noted to have significant left femoral and iliac artery disease however preprocedure discussion as well as during TAVR consult, we discussed planned advancement of the sheath with anticipated need for percutaneous intervention. After consents were obtained, patient was brought to the transcatheter aortic valve implantation room in the cardiac tutorial laboratory supervisor and MAC anesthesia was provided by the anesthesiologist (see separate report) secondary to pumonary status and esophageal stricture. Once full body sterile prep was performed, right femoral venous access was obtained and a 6Fr sheath was placed. A temporary pacemaker was placed in the RV. Pacing threshholds were checked and deemed appropriate. Next the right femoral artery was accessed using a modified Seldinger technique, ultrasound guidance and micropuncture technique. A 6 [place] Rabi sheath was placed in the right femoral artery. Next, a 6-[place]ra[place] pigtail catheter was advanced into the aorta and positioned in the aortic root, aortic root angiography was performed to determine optimal deployment angle. The left femoral artery was accessed using modified Seldinger technique, micropuncture technique and under direct ultrasound guidance. Femoral angiogram was done showing access in the common femoral artery and a 6Fr sheath was p laced. Next preclose technique was performed using 2 Perclose. Next a 0.035 [place] wire was placed in the Aorta via a pigtail catheter. Over that the arteriotomy was serially dilated and a 14 Fr [place] sheath was placed. Next a 6F- AL1 catheter was advanced over a wire to the aortic root. A straight wire was advanced through the catheter and used to cross the severely stenotic valve. The AL1 was then exchanged for a 6Fr pigtail catheter and pressure measurements were obtained. The 0.035 Lunderquist wire was then positioned in the apex. Next balloon aortic valvuloplasty was performed with a 22mm True balloon. Next a 29 mm Evolut-FX was advanced. The valve was then positioned across the aortic valve and confirmed with aortic root angiography. The valve was then deployed in proper position using slow deployment and with rapid pacing in conjuncture with aortic root angiography. The delivery system was withdrawn back into the arch and an aortic root injection in conjunction with TTE demonstrated a satisfactory result. There was mild para valvular leak. There was no evidence of any other significant abnormalities. The preclose Perclose was then deployed in the left femoral artery and hemostasis was achieved. A 6Fr rim catheter was then advanced to the level of the iliac bifurcation via the right femoral access. Femoral angiogram was performed that showed occlusion of the left external iliac artery into the left common femoral artery. Therefore a 0.035 glide wire and a 0.014 BMW wire were used to attempt to wire from above however unable to pass past the femoral site. Did not want to extend any possible dissection down and therefore a microcatheter needle was used to access the left common femoral artery percutaneously and a 0.014 whisper wire was advanced. A 0.018 [place] catheter was advanced over the 0.014 whisper wire for more support. Next the 0.014 whisper was able to wire the iliac lesion from below and advanced into the aorta. The wire was snared with a 6.0 snare and externalized. Balloon angioplasty was performed with a 4.0 then 5.0 balloon from the right femoral site with hoahaoism of flow. IVUS was performed which showed dissection of the left common iliac into the proximal to mid left common femoral artery. Therefore decision was made to perform stenting. The 6Fr destination sheath was exchanged for a 7Fr Rabi. A 6.0 x 120mm Supera stent was placed in the left external iliac artery into the left common femoral artery. The stent was post dilated with a 6.0 balloon. The wire was pulled and final angiograms were performed. There was uninhibited flow with no dissection. The right femoral angiogram demonstrated an arteriotomy in the common femoral artery however diffuse disease and therefore a short 7Fr sheath was placed to be pulled at a later time. The temporary venous pacemaker was removed and the venous sheath left in place to be pulled at a later time. The patient was then transported to the ICU in hemodynamically stable condition, requiring no pressor support. COMPLICATIONS: None CONCLUSION: 1. Implantaion of 29 mm Evolut-FX transcatheter aortic valve via left femoral approach under MAULIK and fluoro guidance with mild paravalvular aortic regurgitation. 2. Placement of temporary pacemaker wire 3. Aortic Root Aortogram. 4. Pre TAVR balloon aortic valvuloplasty with a 22mm True balloon 5. Repair of left femoral artery using a 6.0 x 120mm Supera stent, post dilated with a 6.0 balloon RECOMMENDATIONS: The patient will be monitored in the ICU for hemodynamic and electrical stability.
[2023-04-10] MEDS: FLUTICASONE 50MCG/SPRAY NASAL 16GM EA NOSTRIL SCH (20:17)
[2023-04-10] MEDS ORDERED: SENNOSIDES-DOCUSATE SODIUM 1 EACH TAB PO SCH (21:00)
[2023-04-10] MEDS ORDERED: lisinopriL 5 MG TAB PO SCH (21:00)
[2023-04-10] MEDS: HEPARIN SODIUM,PORCINE 5,000 UNIT/ML 1 ML VIAL SQ SCH (23:49)
[2023-04-11 05:13] LABS: Basophils % (A) 0 %; Eosinophils # (A) 0.3 k/uL (0-0.7); Eosinophils % (A) 3 %; HCT 31.9 % (39.0-53.0); HGB 10.3 gm/dL (13.0-17.5); Lymphocytes # (A) 0.5 k/uL (1.0-4.8); Lymphocytes % (A) 5 %; MCHC 32.1 g/dL (31.0-37.0); MCV 96.4 fL (80.0-100.0); Mean Platelet Volume 10.4; Monocytes # (A) 0.7 k/uL (0-1.0); Monocytes % (A) 7 %; Neutrophils # (A) 7.9 k/uL (1.3-7.7); Neutrophils % (A) 84 %; Platelet Count 253 k/uL (150-450); RBC 3.31 m/uL (4.30-5.90); RDW 12.6 % (11.5-15.5); WBC 9.4 k/uL (3.8-10.6)
[2023-04-11 05:51] LABS: ALT 34 U/L (4-49); AST 57 U/L (17-59); African American GFR (CKD) 61 (>60 ml/min/1.73 sqM); Albumin 3.4 g/dL (3.5-5.0); Alkaline Phosphatase 55 U/L (38-126); Anion Gap 9 mmol/L; Blood Urea Nitrogen 18 mg/dL (9-20); Carbon Dioxide 22 mmol/L (22-30); Chloride 105 mmol/L (98-107); Glucose 115 mg/dL (74-99); Non-African American GFR(CKD) 53 (>60 ml/min/1.73 sqM); Potassium 4.6 mmol/L (3.5-5.1); Sodium 136 mmol/L (137-145); Total Bilirubin 0.3 mg/dL (0.2-1.3); Total Protein 6.2 g/dL (6.3-8.2)
[2023-04-11] MEDS ORDERED: PANTOPRAZOLE 40 MG TABLET PO SCH (07:30)
--- NOTE | 2023-04-11 07:47 | CA ---
Transthoracic Echo Report Name: Eddie Shirley Age: 82 Gender: M : 1940 Exam Date: 04/10/2023 10:29 Exam Location: [facility] Ht (in): 66 Wt (lb): 180 Ordering Physician: Ngozi Pedroza Attending/Referring Phys: [id number], Kasia Liability Claims Representative Krystyna Escobedo RDCS Procedure CPT: Indications: tavr Cardiac Hx: Technical Quality: Technically difficult study Contrast 1: Total Dose (mL): Contrast 2: Total Dose (mL): MEASUREMENTS (Male / Female) Normal Values DOPPLER AV Peak Velocity 374.9 cm/s AV Peak Gradient 59.0 mmHg AV Mean Velocity 270.0 cm/s AV Mean Gradient 30.0 mmHg AV Velocity Time Integral 96.9 cm LVOT Peak Velocity 87.9 cm/s LVOT Peak Gradient 3.1 mmHg FINDINGS Left Ventricle Left ventricular ejection fraction is estimated at 55-60 %. Right Ventricle Right Atrium Left Atrium Mitral Valve Aortic Valve Pre TAVR . AOV estimated supine stenosis with a peak velocity of 375 m/s, peak gradient 59 mmHg, mean gradient 30 mmHg. Post TAVR AOV insertion max gradient 2.3 mmHg and mean 1.0 mmHg. Mild aortic regurgitation. Tricuspid Valve Pulmonic Valve Pericardium No pericardial effusion. Aorta CONCLUSIONS 1. Normal left ventricular size and systolic function 2. Moderate aortic stenosis with post TAVR evidence of mild aortic regurgitation and no significant gradient Previewed by: Dr. Ben Álvarez MD (Electronically Signed) Final Date: 11 April 2023 07:46
--- NOTE | 2023-04-11 08:04 | XR ---
EXAMINATION TYPE: XR chest 1V portable DATE OF EXAM: 04/11/2023 HISTORY: Post Operative Cardiac Surgery COMPARISON: 04/10/2023 TECHNIQUE: Single view of the chest is submitted. FINDINGS: Demonstrated are scattered senescent parenchymal change. There is no evidence for focal infiltrate. The heart is stable. Aortic valvular prosthesis. Hilar and mediastinal structures are within normal limits. Degenerative changes are seen of the dorsal spine. IMPRESSION: 1. Essentially stable chest without evidence for acute pulmonary disease. Postoperative changes note d.
[2023-04-11] MEDS ORDERED: PRAVASTATIN SODIUM 80 MG TAB PO SCH (09:00)
[2023-04-11] MEDS ORDERED: MAGNESIUM HYDROXIDE 2,400 MG/30 ML CUP PO PRN (09:00)
[2023-04-11] MEDS ORDERED: CYANOCOBALAMIN 500 MCG TAB PO SCH (09:00)
[2023-04-11] MEDS ORDERED: MULTIVITAMINS, THERA 1 EACH TAB PO SCH (09:00)
[2023-04-11] MEDS ORDERED: bisacodyL 10 MG SUPP RECTAL PRN (09:00)
[2023-04-11] MEDS ORDERED: CHOLECALCIFEROL 25 MCG (1000 IU) TABLET PO SCH (09:00)
[2023-04-11] MEDS ORDERED: NON FORMULARY DRUG (Ubidecarenone [Co Q-10] 100 MG Capsule) PO SCH (09:00)
[2023-04-11] MEDS ORDERED: ASPIRIN 81 MG PO SCH (09:00)
[2023-04-11] MEDS ORDERED: NON FORMULARY DRUG (Vitamin K2 [Vitamin K2] 100 MCG Capsule) PO SCH (09:00)
[2023-04-11] MEDS ORDERED: METOPROLOL TARTRATE 12.5 MG TAB PO SCH (09:00)
[2023-04-11] MEDS: HEPARIN SODIUM,PORCINE 5,000 UNIT/ML 1 ML VIAL SQ SCH (09:11)
[2023-04-11] MEDS: FLUTICASONE 50MCG/SPRAY NASAL 16GM EA NOSTRIL SCH (09:14)
[2023-04-11] MEDS ORDERED: CLOPIDOGREL 75 MG TAB PO SCH (12:00)
--- NOTE | 2023-04-11 12:27 | CA ---
Transthoracic Echo Report Name: Eddie Shirley Age: 82 Gender: M : 1940 Exam Date: 04/11/2023 07:41 Exam Location: [facility] Ht (in): 66 Wt (lb): 160 Ordering Physician: Ngozi Pedroza Attending/Referring Phys: [id number], Kasia Caustic Room Operator Keaton Alcaraz Procedure CPT: Indications: post TAVR Cardiac Hx: Technical Quality: Technically difficult study Contrast 1: Total Dose (mL): Contrast 2: Total Dose (mL): MEASUREMENTS (Male / Female) Normal Values 2D ECHO LV Diastolic Diameter PLAX 4.2 cm 4.2 - 5.9 / 3.9 - 5.3 cm LV Systolic Diameter PLAX 3.1 cm IVS Diastolic Thickness 1.1 cm 0.6 - 1.0 / 0.6 - 0.9 cm LVPW Diastolic Thickness 1.2 cm 0.6 - 1.0 / 0.6 - 0.9 cm LV Relative Wall Thickness 0.5 RV Internal Dim ED PLAX 3.0 cm LVOT Diameter 2.0 cm Aortic Root Diameter 2.8 cm LA Systolic Diameter LX 2.0 cm 3.0 - 4.0 / 2.7 - 3.8 cm LV Diastolic Volume MOD BP 53.6 cm??? 67 - 155 / 56 - 104 cm??? LV Systolic Volume MOD BP 16.7 cm??? 22 - 58 / 19 - 49 cm??? LV Ejection Fraction MOD BP 68.8 % >= 55 % LV Diastolic Volume MOD 4C 63.6 cm??? LV Systolic Volume MOD 4C 20.7 cm??? LV Ejection Fraction MOD 4C 67.5 % LV Diastolic Length 4C 7.3 cm LV Systolic Length 4C 6.3 cm LV Diastolic Volume MOD 2C 41.0 cm??? LV Systolic Volume MOD 2C 12.5 cm??? LV Ejection Fraction MOD 2C 69.6 % LV Diastolic Length 2C 6.6 cm LV Systolic Length 2C 5.7 cm LA Volume 53.8 cm??? 18 - 58 / 22 - 52 cm??? DOPPLER AV Peak Velocity 205.2 cm/s AV Peak Gradient 16.8 mmHg AV Mean Velocity 130.8 cm/s AV Mean Gradient 8.1 mmHg AV Velocity Time Integral 37.1 cm AI Peak Velocity 297.3 cm/s AI Peak Gradient 35.4 mmHg AI Pressure Half Time 591.3 ms LVOT Peak Velocity 145.5 cm/s LVOT Peak Gradient 8.5 mmHg LVOT Velocity Time Integral 30.2 cm LVOT Stroke Volume 93.2 cm??? LVOT Stroke Volume Index 51.2 ml/m??? AV Area Cont Eq vti 2.5 cm??? AV Area Cont Eq pk 2.2 cm??? MV Peak Velocity 158.9 cm/s MV Peak Gradient 10.1 mmHg MV Mean Velocity 77.6 cm/s MV Mean Gradient 2.9 mmHg MV Velocity Time Integral 37.6 cm Mitral E Point Velocity 106.9 cm/s Mitral A Point Velocity 154.9 cm/s Mitral E to A Ratio 0.7 MV Deceleration Time 242.7 ms MV E' Velocity 5.3 cm/s Mitral E to MV E' Ratio 20.1 TR Peak Velocity 287.1 cm/s TR Peak Gradient 33.0 mmHg Right Ventricular Systolic Press 38.0 mmHg PV Peak Velocity 93.2 cm/s PV Peak Gradient 3.5 mmHg FINDINGS Left Ventricle Normal LV size and wall thickness. Left ventricular ejection fraction is estimated at 55-60 %.normal left ventricular wall motion. Right Ventricle Normal right ventricular size. RVSP= 38mmHg. Right Atrium Normal right atrial size. Left Atrium Normal left atrial size. Mitral Valve Moderate mitral annular calcification. Mild mitral regurgitation. Aortic Valve POST TAVR. Aortic valve not well visualized. Mild prosthetic aortic valve regurgitation. Tricuspid Valve Structurally normal tricuspid valve. Mild TR. Pulmonic Valve Pulmonic valve not well visualized. Trace PI. Pericardium Normal pericardium. Aorta Normal size aortic root . CONCLUSIONS Technically difficult study. 1. Normal left ventricle size and systolic function 2. TAVR with mild aortic regurgitation and a mean gradient of 8 mmHg 3. Mild mitral and tricuspid regurgitation with mild pulmonary hypertension Previewed by: Dr. Ben Álvarez MD (Electronically Signed) Final Date: 11 April 2023 12:26
--- NOTE | 2023-04-11 12:57 | P.DS ---
Providers Date of admission: 04/10/23 07:42 Expected date of discharge: 04/11/23 Attending physician: Bijan Maier DO Consults: 04/10/23 08:00 Consult to Anesthesia Routine Consulting Provider: Anesthesia,Services Consult Reason/Comments: Cardiac Surgery Pre-Op 04/10/23 12:46 Consult Physician Routine Consulting Provider: Kelsey Be Consult Reason/Comments: post TAVR Do you want consulting provider notified?: Already Contacted Primary care physician: Javier Ugarte [facility] Course: MEDICAL HISTORY: 1. Calcified aortic valve with severe symptomatic aortic valve stenosis, NYHA II 2. Hypertension 3. Hyperlipidemia 4. PAD, intermittent claudication with previous angioplasty of the right and left SFA as well as recent stenting of the left SFA 5. Diet-controlled diabetes 6. Chronic kidney disease, stage III 7. History of esophageal stricture 8. Previous tobacco dependence PROCEDURE: 1. Percutaneous aortic valve implantation using a 29 mm Evolute FX under MAULIK and fluoroscopy guidance 2. Transesophageal echocardiography performed by anesthesia 3. Ultrasound-guided access and repair of left femoral artery access site by Perclose closure device 4. Placement of temporary pacemaker wire 5. Aortic root angiography 6. Pre-balloon aortic valvuloplasty with a 22 mm True balloon 7. Repair of left femoral artery using 6.0 x 120 mm supera-stent, post dilated with a 6.0 balloon 8. IVUS left femoral artery HISTORY OF PRESENT ILLNESS: This is an 82-year-old gentleman who follows on an outpatient basis with Dr. Ugarte for primary care and Dr. Kelly for cardiology. He has a known history of severe aortic stenosis and has been symptomatic with increased exertional dyspnea as well as chest discomfort. He had been referred to structural heart clinic for evaluation for transcatheter aortic valve replacement after heart catheterization and transthoracic echocardiogram were completed. Echocardiography demonstrated normal systolic function with EF 55%, aortic valve area 0.8 cm with a peak/mean gradient 80/48 mmHg. Heart catheterization showed mild nonobstructive coronary artery disease. After workup was completed STS risk score was calculated along with incremental risk and the patient was felt to be low risk for surgical aortic valve replacement, however patient preferred to have TAVR approach. The usual course of TAVR was discussed in detail the patient, risks and benefits were reviewed, shared decision making between cardiology, surgery, and the patient/family took place, and the patient consented to proceed with the procedure. His TAVR was scheduled after peripheral angioplasty was completed by Dr. Kelly. HOSPITAL COURSE: The patient was brought to the hospital on 04/10/23, was taken to the extended stay area, prepared in the usual fashion, and subsequently taken to the cardiac catheterization laboratory where Dr. Maier and Dr. Be completed TAVR procedure under conscious sedation with fluoroscopy and TTE. The valve was deployed under rapid ventricular pacing and proceeded without event. At the end of the procedure there was no significant gradient, hemodynamics were felt to be acceptable, and there was mild aortic regurgitation. Upon completion of the procedure the patient was transferred to the cardiovascular intensive care unit where he was recovered and monitored hemodynamically. His oxygen was titrated down, he was tolerating oral diet, his pain was controlled, follow-up TTE demonstrated normal left ventricular systolic function, mild AI with mean gradient 8 mmHg and he was ready to be discharged to home on postoperative day #1. He received written and verbal instruction regarding his medications, activity restrictions, signs and symptoms requiring physician notification, and follow-up appointments. Patient Condition at Discharge: Stable Plan - Discharge Summary Discharge Rx Participant: No New Discharge Prescriptions: New Sennosides-Docusate Sodium [Senokot-S] 2 each PO HS PRN tab PRN Reason: Constipation Acetaminophen Tab [Tylenol] 650 mg PO Q4HR PRN tab PRN Reason: Fever And/ Or Mild Pain (1-3) Continue Cyanocobalamin (Vitamin B-12) [Vitamin B-12] 1,000 mcg PO DAILY Cholecalciferol [Vitamin D3 (25 Mcg = 1000 Iu)] 25 mcg PO DAILY Ubidecarenone [Co Q-10] 100 mg PO DAILY Pravastatin Sodium 80 mg PO DAILY Clopidogrel [Plavix] 75 mg PO 1200 lisinopriL [Zestril] 5 mg PO HS Vitamin K2 90 mcg PO DAILY Multivitamin/Iron/Folic Acid [Centrum Adults Tablet] 1 each PO DAILY Fluticasone Nasal [place] [Flonase Nasal [place]] 1 spray EA NOSTRIL BID Aspirin 81 mg PO DAILY Discharge Medication List Cholecalciferol [Vitamin D3 (25 Mcg = 1000 Iu)] 25 mcg PO DAILY 12/14/21 [History] Cyanocobalamin (Vitamin B-12) [Vitamin B-12] 1,000 mcg PO DAILY 12/14/21 [ History] Ubidecarenone [Co Q-10] 100 mg PO DAILY 12/14/21 [History] Vitamin K2 90 mcg PO DAILY 12/14/21 [History] lisinopriL [Zestril] 5 mg PO HS 12/14/21 [History] Fluticasone Nasal [place] [Flonase Nasal [place]] 1 spray EA NOSTRIL BID 01/04/23 [History] Multivitamin/Iron/Folic Acid [Centrum Adults Tablet] 1 each PO DAILY 01/04/23 [History] Pravastatin Sodium 80 mg PO DAILY 01/04/23 [History] Aspirin 81 mg PO DAILY 01/08/23 [History] Clopidogrel [Plavix] 75 mg PO 1200 03/27/23 [History] Acetaminophen Tab [Tylenol] 650 mg PO Q4HR PRN tab 04/11/23 [Rx] Sennosides-Docusate Sodium [Senokot-S] 2 each PO HS PRN tab 04/11/23 [Rx] Follow up Appointment(s)/Referral(s): Michael Kelly MD [STAFF PHYSICIAN] - 04/15/23 10:15 am (Your appointment 04/15 is for groin check. You also have a 30 day post TAVR echo 06/26/23 @ 7:15 [address] appointment [address] Kelly 06/24/23 @ 3:15 pm. Your 1 year post TAVR echo is 04/10/24 @ 1 pm, and appointment with Dr. Kelly 04/10/24 @ 2:15 pm) Javier Ugarte, [Primary Care Provider] - As Needed Clinic,Structural Heart [NON-STAFF] - 06/26/23 9:00 am (Your appointment 06/26 at the valve clinic is for 30 day post TAVR (between your echo and appt w/ Dr. Kelly-you may come at 2:45 instead of 9 am if you wish). You also have a 1 year post TAVR follow up at the valve clinic 04/10/24 @ 12:30 ) Ambulatory/Diagnostic Orders: Basic Metabolic Panel [LAB.AMB] Location: None Selected Complete Blood Count w/diff [LAB.AMB] Location: None Selected Complete Blood Count w/diff [LAB.AMB] Location: None Selected Comprehensive Metabolic Panel [LAB.AMB] Location: None Selected Activity/Diet/Wound Care/Special Instructions: DISCHARGE INSTRUCTIONS: 1. No driving for 1 week, or until physician gives their ok. 2. No lifting, pushing, or pulling more than 5-10 pounds for 1 week. 3. Hold both groins when you cough or sneeze for the next 2 weeks. Bruising is common, but report increased swelling, pain or fever >101F 4. Shower daily. No pool, hot tub, or bathtub for 1 week 5. No powders, lotions, ointments on incisions. 6. No straining, including for bowel movements. Use stool softner if necessary 7. Stairs are not an issue. Go slowly, using handrail and take 1 step at a time. Ambulate several times daily 8. Continue pain control per as needed orders. 9. Take only the medications listed on your discharge form 10. Eat low salt (limited to 2 grams or 2000 milligrams) daily, avoid adding salt, avoid canned/processed foods 11. Take your weight daily in the morning and record, bring with you to your follow up appointments 12. Keep all follow up appointments. You will need a valve clinic appointment at 30 days and 1 year post procedure for follow up 13. You have been referred to and are expected to begin Cardiac Rehab in approximately 4 weeks. 14. You will need antibiotics prior to any dental work, including cleanings, and any surgeries to prevent Endocarditis (bacterial infection in your heart) For any questions or concerns please call your valve coordinators: Ngozi or Salas @ Discharge Disposition: HOME SELF-CARE
[2023-04-11 15:43] VITALS: BP 124/55; PULSE 93; RESP 20
[2023-04-11 15:49] VITALS: TEMP 98.3
[2023-04-11 16:08] VITALS: BMI 26.1
== END 2023-04-11 14:02 | disposition home or self-care (01) | DRG 267 ==
LOC: 2ORMAIN 04-10 07:42 → 2SICU 04-10 13:17
PROVIDERS: ADMIT Internal Medicine; ATTEND Internal Medicine
PROC: B3101ZZ Fluoroscopy of Thoracic Aorta using Low Osmolar Contrast (ICD-10-PCS; 2023-04-10)
PROC: B24BZZ4 Ultrasonography of Heart with Aorta, Transesophageal (ICD-10-PCS; 2023-04-10)
PROC: B44LZZ3 Ultrasonography of Femoral Artery, Intravascular (ICD-10-PCS; 2023-04-10)
PROC: 02RF38Z Replacement of Aortic Valve with Zooplastic Tissue, Percutaneous Approach (ICD-10-PCS; principal; 2023-04-10 10:10)
PROC: 04QL0ZZ Repair Left Femoral Artery, Open Approach (ICD-10-PCS; 2023-04-10 10:10)
PROC: 5A1223Z Performance of Cardiac Pacing, Continuous (ICD-10-PCS; 2023-04-10 10:10)
DX: I35.2 Nonrheumatic aortic (valve) stenosis with insufficiency (principal); Z00.6 Encounter for examination for normal comparison and control in clinical research program; K59.00 Constipation, unspecified; N18.30 Chronic kidney disease, stage 3 unspecified; I73.9 Peripheral vascular disease, unspecified; E11.51 Type 2 diabetes mellitus with diabetic peripheral angiopathy without gangrene; E78.5 Hyperlipidemia, unspecified; I35.8 Other nonrheumatic aortic valve disorders; E11.22 Type 2 diabetes mellitus with diabetic chronic kidney disease; I12.9 Hypertensive chronic kidney disease with stage 1 through stage 4 chronic kidney disease, or unspecified chronic kidney disease; I25.10 Atherosclerotic heart disease of native coronary artery without angina pectoris; K22.2 Esophageal obstruction; Z87.891 Personal history of nicotine dependence; Z71.3 Dietary counseling and surveillance; Z79.02 Long term (current) use of antithrombotics/antiplatelets; Z79.82 Long term (current) use of aspirin
CPT/HCPCS: 33361; 37221; 37252; 71045; 80053; 82330; 82947; 83735; 85025; 85347; 85610; 85730; 93306

== ENCOUNTER 2023-04-02 05:53 | Day surgery (SDC) | payer MEDICARE ==
[~2023-04-02 05:53] MED LIST changes: -ATORVASTATIN 80 MG TAB PO STA; +HEPARIN SODIUM,PORCINE (1 ML) 2,500 UNIT in SODIUM CHLORIDE 0.9% 250 ML IRRIGATION PRN; -HEPARIN SODIUM,PORCINE 2,500 UNIT in SODIUM CHLORIDE 0.9% 250 ML IRRIGATION PRN; -NITROGLYCERIN SL TABS 0.4 MG TAB SUBLINGUAL PRN
[2023-04-02] MEDS ORDERED: SODIUM CHLORIDE 0.9% 1,000 ML IV ONE (06:08)
[2023-04-02 06:24] LABS: Glucose,Whole Blood 108 mg/dL (70-110)
[2023-04-02] MEDS ORDERED: LIDOCAINE 1% INJ 10MG/ML (20 ML MDV) SQ ONE (07:42)
[2023-04-02] MEDS ORDERED: MIDAZOLAM 2 MG/2 ML VIAL IVP ONE ×2 (07:45→10:02)
[2023-04-02] MEDS: MIDAZOLAM 2 MG/2 ML VIAL IVP ONE ×2 (07:50→09:19)
[2023-04-02] MEDS ORDERED: HEPARIN SODIUM 1,000 UN/ML (10ML VL) ONE (08:08)
[2023-04-02] MEDS ORDERED: fentaNYL (PF) 50 MCG/ML 2 ML AMP ONE ×2 (08:32→10:47)
[2023-04-02] MEDS: fentaNYL (PF) 50 MCG/ML 2 ML AMP IVP ONE ×3 (08:35→09:49)
[2023-04-02 09:06] LABS: Basophils % (A) 1 %; Eosinophils # (A) 0.4 k/uL (0-0.7); Eosinophils % (A) 7 %; HCT 37.5 % (39.0-53.0); HGB 12.4 gm/dL (13.0-17.5); Lymphocytes % (A) 16 %; MCH 31.5 pg (25.0-35.0); MCHC 32.9 g/dL (31.0-37.0); MCV 95.7 fL (80.0-100.0); Mean Platelet Volume 9.3; Monocytes # (A) 0.6 k/uL (0-1.0); Monocytes % (A) 10 %; Neutrophils # (A) 3.8 k/uL (1.3-7.7); Neutrophils % (A) 63 %; Platelet Count 234 k/uL (150-450); RBC 3.92 m/uL (4.30-5.90); RDW 12.7 % (11.5-15.5)
[2023-04-02 09:17] LABS: ALT 18 U/L (4-49); AST 30 U/L (17-59); African American GFR (CKD) 56 (>60 ml/min/1.73 sqM); Albumin 4.1 g/dL (3.5-5.0); Alkaline Phosphatase 53 U/L (38-126); Anion Gap 5 mmol/L; Blood Urea Nitrogen 27 mg/dL (9-20); Calcium 9.6 mg/dL (8.4-10.2); Carbon Dioxide 27 mmol/L (22-30); Chloride 105 mmol/L (98-107); Glucose 104 mg/dL (74-99); Non-African American GFR(CKD) 48 (>60 ml/min/1.73 sqM); Potassium 4.8 mmol/L (3.5-5.1); Sodium 137 mmol/L (137-145); Total Bilirubin 0.7 mg/dL (0.2-1.3); Total Protein 7.1 g/dL (6.3-8.2)
[2023-04-02] MEDS ORDERED: HEPARIN SODIUM 1,000 UN/ML (10ML VL) IVP ONE (09:47)
[2023-04-02 09:52] LABS: RBC Morphology Normal
[2023-04-02] MEDS ORDERED: niCARdipine 25 MG/10 ML VIAL ONE (10:08)
[2023-04-02] MEDS ORDERED: NITROGLYCERIN 1000MCG/10ML SYRINGE INTRAARTER ONE (10:13)
[2023-04-02] MEDS ORDERED: niCARdipine Syringe (1,000 mcg/10 mL) INTRAARTER ONE (10:13)
[2023-04-02] MEDS ORDERED: CLOPIDOGREL 75 MG TAB ONE (10:17)
[2023-04-02] MEDS ORDERED: NALOXONE 0.4 MG/ML 1 ML VIAL IVP PRN (10:25)
[2023-04-02] MEDS ORDERED: SODIUM CHLORIDE 0.9% 1,000 ML in EMPTY BAG 1 BAG IV SCH (10:30)
[2023-04-02] MEDS ORDERED: CLOPIDOGREL 75 MG TAB PO ONE (10:32)
[2023-04-02] MEDS ORDERED: IOPAMIDOL-250 100ML BTL INTRAARTER ONE (10:33)
--- NOTE | 2023-04-02 10:35 | P.PCN ---
Date of Procedure: 04/02/23 Operative Findings: PERCUTANEOUS PERIPHERAL INTERVENTION Performing physician Michael Kelly M.D. Procedure performed 1. Successful angioplasty and stenting of the left SFA using Zilver PTX drug- coated stents with an excellent angiographic results 2. Adjunctive use of intravascular ultrasound and lithotripsy balloon and orbital atherectomy device 3. Left lower extremity angiogram 4. Right common femoral artery angiogram Indication Occluded left SFA in this 82-year-old gentleman who is experiencing symptoms of left lower extremity intermittent claudication consistent was Kirk class IIa. Approach Right common femoral artery Complications None Level of sedation Moderate with a sedation time of 2 hours and 34 minutes Procedure description After obtaining an informed consent the patient was brought to the cardiac cath lab tech. The right common femoral artery was cannulated using micropuncture technique and the micropuncture wire passed easily then I placed a 6-Kazakh sheath the right common femoral artery. At that point anticoagulation was initiated using heparin with continuous ACT monitoring. After that I did place a 70 cm 6-Kazakh sheath over 035 wire. Subsequently I did selective left the profunda using 035 stiff Glidewire with a backup support of rim catheter. Subsequently the sheath was advanced over the wire and the rim catheter over the way to the left common femoral artery where left lower extremity angiogram was performed and showed 2 vessels run off with anterior tibial and peroneal and patent left popliteal and occluded left SFA which was extremely calcified. Crossing the chronic total occlusion of the left SFA was performed using 018 wire with a backup support of 018 catheter. I proven that I was in the true lumen with injections with 018 catheter. After that we decided to create a tiny lumen by performing balloon angioplasty and that was a 4 mm balloon angioplasty. After the balloon angioplasty was performed and attempting pulling the balloon out over 014 wire and that was the Viber wire the balloon ripped. We attempted retrieving the balloon using a snare but that was unsuccessful after that I placed an 014 wire and I decided to the balloon inside the sheath and subsequently I advanced an 01 4 x 20 mm x 18 mm balloon. The balloon was inflated inside the sheath just to hold the other part of the ribs balloon. Subsequently I pulled the sheath out with the balloon attached to it. We left with 014 wire which was subsequently exchanged over microcatheter into an 035 wire. After that I did advance the long sheath again and I went up and over again. I rewire the SFA using an 018 [place] to the Glidewire which was an exchange in 2013 wire where we did intravascular ultrasound and that showed the diameter around 6 mm was heavily calcified vessel. Again balloon angioplasty was performed using 014 this time noncompliant balloon which was inflated multiple times in the SFA in the distal and mid and proximal portion. After that did use 6 mm lithotripsy balloon which was inflated in the distal and mid and proximal left SFA again with delivering the shocks. After that angiogram was performed and showed flow limiting dissection involving the distal and mid left SFA and also what it seems to be dissection involving the ostial left SFA. We place 3 stents. Distally I placed a 7.0 x 140 mm stent and in the midportion 7.0 x 1 29 m stent and proximally 7.0 x 18 mm stents. Postdilatation was performed using 6 m noncompliant balloon with final angiogram showing excellent angiographic results and the procedure was completed was no complication. After that I exchanged my long sheath into short sheath using 035 wire before I did selective right common femoral artery angiogram Postprocedure management 1. Dual antiplatelet therapy 2. Aggressive cholesterol control 3. Risk factors modification 4. Follow-up with the patient
--- NOTE | 2023-04-02 11:24 | IR ---
EXAMINATION TYPE: IR stent intravas non coronary DATE OF EXAM: 04/02/2023 COMPARISON: NONE HISTORY: Fluoroscopy time. Fluoroscopy was provided to the referring clinician.
[2023-04-02] MEDS ORDERED: CLOPIDOGREL 75 MG TAB PO SCH (12:00)
[2023-04-02] MEDS: lisinopriL 5 MG TAB PO SCH (20:59)
[2023-04-02] MEDS: FLUTICASONE 50MCG/SPRAY NASAL 16GM EA NOSTRIL SCH (21:03)
[2023-04-03 06:26] VITALS: RESP 16
--- NOTE | 2023-04-03 07:50 | P.DS ---
Providers Attending physician: Michael Kelly Primary care physician: [facility] Course: The patient is an 82-year-old gentleman who underwent yesterday successful recanalizing chronically occluded left SFA with a good angiographic results and with no complication from right groin approach He was seen this morning. He is asymptomatic and hemodynamically stable. The right groin is soft and nontender was no bruises. I was able to feel pedal pulse in the left anterior tibial artery. The patient is going to be discharged home on dual antiplatelet therapy and I'll follow-up with the patient next week in the office Plan - Discharge Summary Discharge Rx Participant: Yes New Discharge Prescriptions: Continue Cyanocobalamin (Vitamin B-12) [Vitamin B-12] 1,000 mcg PO DAILY Cholecalciferol [Vitamin D3 (25 Mcg = 1000 Iu)] 25 mcg PO DAILY Ubidecarenone [Co Q-10] 100 mg PO DAILY Pravastatin Sodium 80 mg PO DAILY Clopidogrel [Plavix] 75 mg PO 1200 lisinopriL [Zestril] 5 mg PO BID Vitamin K2 90 mcg PO DAILY Multivitamin/Iron/Folic Acid [Centrum Adults Tablet] 1 each PO DAILY Fluticasone Nasal [place] [Flonase Nasal [place]] 1 spray EA NOSTRIL BID Aspirin 81 mg PO DAILY Discharge Medication List Cholecalciferol [Vitamin D3 (25 Mcg = 1000 Iu)] 25 mcg PO DAILY 12/14/21 [History] Cyanocobalamin (Vitamin B-12) [Vitamin B-12] 1,000 mcg PO DAILY 12/14/21 [His tory] Ubidecarenone [Co Q-10] 100 mg PO DAILY 12/14/21 [History] Vitamin K2 90 mcg PO DAILY 12/14/21 [History] lisinopriL [Zestril] 5 mg PO BID 12/14/21 [History] Fluticasone Nasal [place] [Flonase Nasal [place]] 1 spray EA NOSTRIL BID 01/04/23 [History] Multivitamin/Iron/Folic Acid [Centrum Adults Tablet] 1 each PO DAILY 01/04/23 [History] Pravastatin Sodium 80 mg PO DAILY 01/04/23 [History] Aspirin 81 mg PO DAILY 01/08/23 [History] Clopidogrel [Plavix] 75 mg PO 1200 03/27/23 [History] Follow up Appointment(s)/Referral(s): Michael Kelly MD [STAFF PHYSICIAN] - 04/15/23 10:15 am Patient Instructions/Handouts: Moderate Sedation (DC), Peripheral Vascular Angioplasty (DC), Peripheral Vascular Stent Placement (DC)
[2023-04-03 08:13] VITALS: BP 113/66; PULSE 96; TEMP 98.8
[2023-04-03] MEDS: lisinopriL 5 MG TAB PO SCH (08:30)
[2023-04-03] MEDS ORDERED: PRAVASTATIN SODIUM 80 MG TAB PO SCH (09:00)
[2023-04-03] MEDS ORDERED: CYANOCOBALAMIN 500 MCG TAB PO SCH (09:00)
[2023-04-03] MEDS ORDERED: CLOPIDOGREL 75 MG TAB PO SCH (09:00)
[2023-04-03] MEDS ORDERED: MULTIVITAMINS, THERA 1 EACH TAB PO SCH (09:00)
[2023-04-03] MEDS ORDERED: ASPIRIN 81 MG PO SCH (09:00)
[2023-04-03] MEDS ORDERED: CHOLECALCIFEROL 25 MCG (1000 IU) TABLET PO SCH (09:00)
[2023-04-03] MEDS ORDERED: NON FORMULARY DRUG (Vitamin K2 [Vitamin K2] 100 MCG Capsule) PO SCH (09:00)
[2023-04-03] MEDS ORDERED: NON FORMULARY DRUG (Ubidecarenone [Co Q-10] 100 MG Capsule) PO SCH (09:00)
[2023-04-03] MEDS: FLUTICASONE 50MCG/SPRAY NASAL 16GM EA NOSTRIL SCH (09:21)
[2023-04-03 09:40] LABS: African American GFR (CKD) 56 (>60 ml/min/1.73 sqM); Non-African American GFR(CKD) 49 (>60 ml/min/1.73 sqM)
== END 2023-04-03 09:41 | disposition home or self-care (01) ==
LOC: CATHCVL 05:53 → 3SCARD 10:21 → CATHCVL 04-03 09:41
PROVIDERS: ATTEND Internal Medicine Interventional Cardiology
DX: I65.23 Occlusion and stenosis of bilateral carotid arteries (principal); I73.9 Peripheral vascular disease, unspecified; Z79.02 Long term (current) use of antithrombotics/antiplatelets; Z79.899 Other long term (current) drug therapy; Z79.82 Long term (current) use of aspirin
CPT/HCPCS: 37252; 86900; 86901; 80053; 82565; 85025; 86850; C1894 ×2; C1773; C1769 ×6; C1714; C1725 ×3; C1753; C1874 ×2; C9767; J2250; J2001; J3010; J1644 ×2; Q9966; J2305